=== PATIENT | female | born 1970 | race Caucasian/White ===

== ENCOUNTER → 2018-01-29 07:51 | Outpatient (CLI) | payer SELFPAY ==
--- NOTE | 2018-01-29 07:55 | ECHOD_ITS ---
Reason For Study: Arrhythmia Procedure This was a 2D Doppler, Color Flow transthoracic echocardiogram. The exam was of adequate technical quality. Exam performed in department. Left Ventricle Normal LV size. Left ventricular systolic function is normal. The estimated ejection fraction is 55 %. Diastolic function: considered indeterminate. No regional wall motion abnormalities noted. Right Ventricle Normal RV size. ICD or pacer leads identified within the right ventricle. Normal systolic function. Atria The left atrium is mildly enlarged. Normal right atrium. ICD or pacer leads identified within the right atrium. Color flow study cannot excluded a small ASD. Agitated saline contrast study negative for a right to left interatrial shunt. Mitral Valve There is no mitral annular calcification. Mild mitral valve prolapse, posterior leaflet. Trivial mitral valve insufficiency. Tricuspid Valve Normal tricuspid valve. Mild tricuspid valve insufficiency. Right ventricular systolic pressure estimated to be 33 mmHg. Aortic Valve Trisinus/trileaflet aortic valve. Normal aortic valve. Pulmonic Valve The pulmonic valve is not well visualized. Trivial pulmonic valve insufficiency. Great Vessels Normal sized aortic root. Pericardium/Pleural No pericardial effusion. Medication 22 gauge I.V. with prn adaptor inserted into right arm. Performed a rapid injection of agitated mix of 9 cc saline and 1cc air to assess for atrial septal defect. MMode/2D Measurements & Calculations LVIDd: 5.0 cm IVSd: 0.68 cm Ao root diam: 3.2 cm LVIDs: 3.1 cm LVPWd: 0.85 cm LA dimension: 3.6 cm FS: 38.2 % LAV(MOD-bp): 47.8 ml LVAd ap4: 29.3 cm2 SV(MOD-sp4): 51.4 ml LAV(MOD-bp) Indexed: 26.9 ml/m2 EDV(MOD-sp4): 92.2 ml LAV(MOD-sp2): 46.2 ml EDV(sp4-el): 95.5 ml LAV(MOD-sp4): 49.2 ml LVAs ap4: 17.4 cm2 ESV(MOD-sp4): 40.8 ml ESV(sp4-el): 38.9 ml EF(MOD-sp4): 55.8 % EF(sp4-el): 59.3 % SV(sp4-el): 56.6 ml LA A4 area: 18.8 cm2 RA A4 area: 14.6 cm2 Time Measurements MV dec time: 0.37 sec Doppler Measurements & Calculations MV E max nikki: 88.7 cm/sec Ao V2 max: 118.6 cm/sec LV V1 max: 85.3 cm/sec MV A max nikki: 34.7 cm/sec Ao max P.6 mmHg LV V1 max P.9 mmHg MV E/A: 2.6 Ao V2 mean: 80.2 cm/sec LV V1 mean P.5 mmHg Ao mean P.0 mmHg LV V1 mean: 56.7 cm/sec Ao V2 VTI: 25.9 cm LV V1 VTI: 18.9 cm PA V2 max: 93.4 cm/sec TR max nikki: 275.5 cm/sec TR max P.4 mmHg Interpretation Summary Left ventricular systolic function is normal. The estimated ejection fraction is 55 %. The left atrium is mildly enlarged. Mild mitral valve prolapse, posterior leaflet Trivial mitral valve insufficiency. Mild tricuspid valve insufficiency. Trivial pulmonic valve insufficiency. Right ventricular systolic pressure estimated to be 33 mmHg. Diastolic function: considered indeterminate. ICD or pacer leads identified within the right atrium ICD or pacer leads identified within the right ventricle. Color flow study cannot excluded a small ASD. Agitated saline contrast study negative for a right to left interatrial shunt. Consider further evaluation of atrial septal anatomy with HANNA if clinically indicated. Ordering Physician: Fernando Avelar Referring Physician: Fernando Avelar Performed By: Todd Mosquera RCS
== END ==
PROVIDERS: Family Provider Family Medicine; PCP Family Medicine; Visit Provider Internal Medicine Cardiovascular Disease
DX: I47.2 Ventricular tachycardia (principal); I48.0 Paroxysmal atrial fibrillation; Z95.810 Presence of automatic (implantable) cardiac defibrillator; I45.81 Long QT syndrome
CPT/HCPCS: 93306; A4216

== ENCOUNTER 2021-09-25 11:51 | Outpatient (CLI) | payer SELFPAY ==
[2021-09-25 12:16] LABS: Bacteria 0 SEEN /hpf (None Seen); Mucous, Urine 0 SEEN /hpf (<or=2+); White Blood Cells 0 SEEN /hpf (0-5)
[2021-09-25 12:34] LABS: Color, Urine Yellow (Yellow); Glucose, Dipstick Normal (Normal); Ketone-Dipstick Negative (Negative); Leukocyte Esterase-Dipstick Negative /ul (Negative); Nitrite-Dipstick Negative (Negative); Occult Blood-Urine 150 /ul (Negative); Protein-Dipstick Negative (Negative); Specific Gravity, Urine 1.015 (1.002-1.030); Urine Bilirubin Dipstick Negative (Negative); Urine Clarity Clear (Clear); Urine Urobilinogen Normal (Normal)
[2021-09-25 12:35] LABS: Hematocrit 39.6 % (37-47); Mean Corp Hgb Conc 32.8 g/dL (32-36); Mean Corpuscular Volume 94.5 fL (81-99); Mean Platelet Vol. 9.7 fl (6.2-12.0); Platelet Count 251 K/mm3 (150-450); RBC Distribution Width CV 12.4 % (11.6-14.6); Red Blood Count 4.19 M/mm3 (4.2-5.4); White Blood Count 6.4 K/mm3 (4.4-11.0)
[2021-09-25 12:44] LABS: International Normalized Ratio 1.1; Prothrombin Time (Protime)PT. 13.2 SECONDS (11.7-14.9); Red Blood Cells-Urine 10-25 SEEN /hpf (0-5); Squamous Epithelial Cells - UA 0-5 SEEN /hpf (5-10)
[2021-09-25 13:16] LABS: Anion Gap 4 (5-15); BUN 17 mg/dL (7-18); BUN/Creat Ratio 21.6 RATIO (10-20); Calcium,Total 9.4 mg/dL (8.5-10.1); Chloride 109 mmol/L (98-107); Creatinine, Serum 0.79 mg/dL (0.55-1.02); EST Glomerular Filtration Rate 82 mL/min (>60); Est Glom Filt Rate - Afr Amer 100 mL/min (>60); Glucose 90 mg/dL (74-106); Potassium 4.4 mmol/L (3.5-5.1); Sodium Level 137 mmol/L (136-145)
== END 2021-09-25 23:59 | disposition home or self-care (01) ==
PROVIDERS: Internal Medicine Cardiovascular Disease; PCP Family Medicine; Referring Provider Physician Assistant Medical; Visit Provider Physician Assistant Medical
DX: I42.8 Other cardiomyopathies (principal); I48.0 Paroxysmal atrial fibrillation; I49.5 Sick sinus syndrome; I47.2 Ventricular tachycardia; Z95.810 Presence of automatic (implantable) cardiac defibrillator; I45.81 Long QT syndrome; Z86.74 Personal history of sudden cardiac arrest; Z01.818 Encounter for other preprocedural examination
CPT/HCPCS: 36415; 80048; 81001; 85027; 85610; 87635; C9803; U0003; U0005

== ENCOUNTER 2021-09-28 08:52 | Day surgery (SDC) | payer SELFPAY ==
[2021-09-27 08:16] VITALS: BMI 32.1
--- NOTE | 2021-09-27 16:03 | PCM.HP.BLA ---
History and Physical Date of Admission: 09/28/21 ION WAGNER, is a 50 year old white female who presents to the office today for an updated HPI for a generator change for her ICD. Her ICD has reached SYDNEE. She has a history of long QT syndrome diagnosed in 2004 after 2 syncopal events, cardiac arrest, status post noninvasive/invasive evaluation, and subsequent ICD placement. She also had an atrial fibrillation ablation and successful RVOT?PVC ablation in April 2012 at [facility]. From a cardiac standpoint, patient is doing well. She does not have any chest discomfort/heaviness/tightness. Her exercise tolerance is stable for her age. She does not have any worsening symptoms of shortness of breath. She does not have any orthopnea. She denies PND. She does not have any symptoms of congestive heart failure. She does not have any palpitations that she is aware of. She does not have any lightheadedness or dizziness. She does not have any near-syncope or syncope. She does not have any lower extremity edema. She does not have any symptoms of claudication. Allergies No Known Allergies Allergy (Verified 07/28/21 14:05) Medications lactobacillus combination no.8 3 billion cell capsule 3,000 mmu cells PO QDAY 01/22/18 [History Confirmed 07/28/21] aspirin 81 mg tablet,delayed release 81 mg PO QDAY 01/23/18 [History Confirmed 07/28/21] lorazepam 0.5 mg tablet 0.5 mg PO DAILY PRN 08/05/19 [History Confirmed 07/28/21] cholecalciferol (vitamin D3) 250 mcg (10,000 unit) capsule 250 mcg PO DAILY 10/24/20 [History Confirmed 07/28/21] metoprolol succinate 50 mg tablet,extended release 24 hr 50 mg PO .COMPLEX #135 tab 07/28/21 [Rx Confirmed 07/28/21] paroxetine HCl 10 mg tablet 10 mg PO DAILY 07/28/21 [History Confirmed 07/28/21] [facility] Medical History Atrial arrhythmia Cardiac arrest Fatigue Insomnia Long QT syndrome Non-ischemic cardiomyopathy Paroxysmal atrial fibrillation Presence of automatic (implantable) cardiac defibrillator Sick sinus syndrome Ventricular tachycardia Surgical History History of cardiac radiofrequency ablation (~2012) History of dilatation and curettage History of total hysterectomy S/P implantation of automatic cardioverter/defibrillator (AICD) Family History Father CAD (coronary artery disease) Myocardial infarction, Onset Age: 53 Mother Heart disease Social History Smoking Status: Never smoker alcohol intake: never ROS Const Const: Negative for fatigue, weakness, headache(s), frequent falls, excessive sweating, weight gain or weight loss Eyes Eyes: Negative for blind spots, loss of peripheral vision, transient loss of vision, blurry vision, change in vision or double vision ENT ENT: Negative for headache(s), dizziness, tinnitus, Nosebleed/epistaxis or balance problems Cardio Chest Pain: No Palpitations: No Edema: None Muscle aches with walking: None Resp Respiratory: Negative for SOB with activity, SOB at rest, SOB orthopnea\SOB lying down or Cough GI GI: Negative nausea, vomiting, heartburn, bloating, vomiting blood/hematemesis, bright, red blood in stools or black,tarry stools : Negative for hematuria Musc Musc: Negative for muscle aches/ myalgia, muscle weakness, joint pain or balance problems Skin Skin: Negative rash or wounds Neuro Neuro: Negative for dizziness, lightheadedness, near syncope, syncope, orthostatic symptoms, frequent falls, headache(s), weakness, confusion, memory loss, restless legs, blurry vision or double vision Chay Hematologic/Lymphatic: Negative for easy bleeding or easy bruising Endo Endo: Negative for fatigue, cold intolerance, heat intolerance or excessive sweating Psych Psych: Negative for anxiety or depression Allergy Allergy/Immunology: Negative for rash Cardiology Exam Const Appearance: cooperative, healthy appearing, comfortable, no acute distress and well developed Orientation: alert, awake and oriented x3 Head Head: normal to inspection Ears: hearing grossly normal bilaterally Nose: external nose normal Face and Sinus: face symmetric Mouth: oral mucosae normal, lip normal and moist mucous membranes Eyes General: appearance normal, both eyes and all related structures Eyelids: eyelids normal Conjunctivae: conjunctivae normal Pupils: PERRL EOM: EOM intact bilaterally Neck Neck: normal visual inspection and trachea midline; Negative no JVD Carotids: Negative bruit Chest Chest inspection: normal inspection of the chest and Pacemaker/ICD Yes left pectoral incision Auscultation: Bilateral: Clear to Auscultation Cardio Palpation: normal PMI Rate: regular rate Rhythm: regular rhythm Heart sounds: S1 normal and S2 normal; Negative rub, gallop or murmur GI GI: soft, no hepatosplenomegaly and bowel sounds present Neuro General: patient alert, patient awake, patient oriented x3 and CN's II-XI intact bilaterally Extremities Pulses: Normal: Right Posterior Tibial Pulse, Left Posterior Tibial Pulse, Right Radial Pulse and Left Radial Pulse Lower Extremity Edema: None: Bilateral Psych Psychological: normal affect Supplemental Info Supplemental Information Echocardiogram from January 2018 showed ejection fraction 55%, mildly enlarged left atrium, mild mitral valve prolapse, posterior leaflet, trivial mitral valve insufficiency, mild tricuspid valve insufficiency, trivial pulmonic valve insufficiency, RVSP 33 mmHg, systolic function considered indeterminate, ICD or pacer leads identified within right atrium and right ventricle, color flow study cannot exclude a small ASD, agitated saline contrast negative for right to left interatrial shunt, consider further evaluation of atrial septal anatomy with HANNA if clinically indicated. Assessment & Plan Assessment/Plan (1) Presence of automatic (implantable) cardiac defibrillator: (2) Non-ischemic cardiomyopathy: (3) Cardiac arrest: (4) Long QT syndrome: (5) Ventricular tachycardia: PLAN: Patient's device has reached SYDNEE. She is scheduled to undergo a generator change. She will follow-up with us in our office accordingly.
--- NOTE | 2021-09-28 11:01 | PCM.OPRPT ---
Report of Operation Date of Procedure: 09/28/21 Pre-Operative Diagnosis: REPLACEMENT OF ICD FOR NORMAL BATTERY DEPLETION Post-Operative Diagnosis: SAME ABOVE Estimated Blood Loss (mL): 10 Description of Procedure: Diagnosis: lONG qt SYNDROME WITH CARDIAC ARREST Device generator replacement for normal battery depletion Preoperative diagnosis is device at end of life for normal battery depletion. Postoperative diagnosis same as above. After informed consent and IV antibiotics the patient was brought to the [facility] laboratory and the skin over the device was prepped and draped in the usual sterile manner. Intermittent boluses of Versed, and fentanyl were used for sedation and analgesia as well as 1% subcutaneous lidocaine. An incision was made over the pre-existing device. Using blunt and Bovie dissection the pocket was opened and the device was removed. Careful attention was paid not to injure the pre-existing leads. The leads were removed from the device header and they were interrogated. There is normal lead function. Hemostasis was obtained. The pocket was flushed with antibiotic solution. The sponge and needle count were correct. The new device was brought to the field. The leads were placed in the appropriate position in the header and secured by the set screw. The leads and the device were then placed in the pocket. The pocket was closed with a deep layer of running 2-0 Vicryl, a superficial layer of running 4-0 Vicryl, skin with Steri-Strips which were covered with a rolled 4 x 4 and Tegaderm. Patient left the room with the device programmed to proper parameters and there were no complications. The device is a DUAL chamber [employer] ICD generator. All lead parameters were tested and found to be functionally normal. Lead and device serial and model numbers are available in the chart documents provided by the device company merchandiser retail representative procedure summary.
== END 2021-09-28 23:59 | disposition home or self-care (01) ==
PROVIDERS: PCP Family Medicine; Visit Provider Internal Medicine Cardiovascular Disease
DX: Z45.010 Encounter for checking and testing of cardiac pacemaker pulse generator [battery] (principal); I47.2 Ventricular tachycardia; I48.0 Paroxysmal atrial fibrillation; Z45.02 Encounter for adjustment and management of automatic implantable cardiac defibrillator; I45.81 Long QT syndrome; Z95.810 Presence of automatic (implantable) cardiac defibrillator; Z86.74 Personal history of sudden cardiac arrest; Z79.899 Other long term (current) drug therapy; Z79.82 Long term (current) use of aspirin; Z82.49 Family history of ischemic heart disease and other diseases of the circulatory system
CPT/HCPCS: 33263; 93641; 99152; 99153; J7040

== ENCOUNTER → 2022-01-31 | Outpatient (CLI) | payer SELFPAY ==
[2022-01-31 17:22] LABS: Absolute Lymphocyte Count 2.17 X10^3/uL (0.83-4.51); Basophil# 0.04 X10^3/uL; Basophil% 0.7 % (0-1); Eosinophil# 0.08 X10^3/uL; Eosinophils% 1.4 % (0-5); Hematocrit 40.3 % (37-47); Lymphocyte # 2.17 X10^3/ul (0.83-4.51); Lymphocyte % 38.4 % (19-41); Mean Corp Hgb Conc 32.3 g/dL (32-36); Mean Corpuscular Volume 96.2 fL (81-99); Mean Platelet Vol. 10.2 fl (6.2-12.0); Monocyte# 0.38 X10^3/uL; Monocyte% 6.7 % (0-10); NRBC Flagged by Analyzer 0 % (0-5); Neutrophil # 2.97 X10^3/uL (2.7-7.7); Neutrophil % 52.6 % (47-70); Platelet Count 246 K/mm3 (150-450); RBC Distribution Width CV 12.7 % (11.6-14.6); RBC Distribution Width SD 44.8 fl (35.1-43.9); Red Blood Count 4.19 M/mm3 (4.2-5.4); White Blood Count 5.7 K/mm3 (4.4-11.0)
[2022-01-31 18:28] LABS: Anion Gap 7 (5-15); BUN 19 mg/dL (7-18); BUN/Creat Ratio 22.8 RATIO (10-20); Chloride 104 mmol/L (98-107); Creatinine, Serum 0.83 mg/dL (0.55-1.02); EST Glomerular Filtration Rate 77 mL/min (>60); Est Glom Filt Rate - Afr Amer 93 mL/min (>60); Glucose 87 mg/dL (74-106); Magnesium 2.2 mg/dL (1.6-2.6); Potassium 3.5 mmol/L (3.5-5.1); Sodium Level 139 mmol/L (136-145); Thyroid Stim Hormone (TSH) 1.57 uIU/mL (0.358-3.74)
== END | disposition home or self-care (01) ==
PROVIDERS: PCP Family Medicine; Visit Provider Physician Assistant Medical
DX: I48.0 Paroxysmal atrial fibrillation (principal); I47.2 Ventricular tachycardia; Z95.810 Presence of automatic (implantable) cardiac defibrillator
CPT/HCPCS: 36415; 80048; 83735; 84443; 85025

== ENCOUNTER 2023-10-30 19:20 | Emergency (ER) | payer OTHER, SELFPAY ==
[2023-10-30 19:21] VITALS: BP 129/83; PULSE 70; RESP 18; TEMP 36.1; O2SAT 95; BMI 32.8
[2023-10-30 20:18] LABS: Bacteria 0 SEEN /hpf (None Seen); Color, Urine Yellow (Yellow); Glucose, Dipstick Normal (Normal); Ketone-Dipstick Negative (Negative); Leukocyte Esterase-Dipstick Negative /ul (Negative); Mucous, Urine 0 SEEN /hpf (<or=2+); Nitrite-Dipstick Negative (Negative); Occult Blood-Urine 250 /ul (Negative); Protein-Dipstick 15 mg/dl (Negative); Specific Gravity, Urine 1.025 (1.002-1.030); Urine Bilirubin Dipstick Negative (Negative); Urine Clarity Clear (Clear); Urine Urobilinogen Normal (Normal)
[2023-10-30 20:23] LABS: Absolute Lymphocyte Count 2.86 X10^3/uL (0.83-4.51); Absolute Neutrophil Count 2.8 X10^3/uL (2.0-7.7); Basophil# 0.02 X10^3/uL; Basophil% 0.3 % (0-1); Eosinophil# 0.09 X10^3/uL; Eosinophils% 1.5 % (0-5); Hematocrit 42.6 % (37-47); Hemoglobin 14.1 g/dL (12.0-15.0); Lymphocyte # 2.86 X10^3/ul (0.83-4.51); Lymphocyte % 46.4 % (19-41); Mean Corp Hgb Conc 33.1 g/dL (32-36); Mean Corpuscular Hgb 31.3 pg (27.0-32.0); Mean Corpuscular Volume 94.7 fL (81-99); Mean Platelet Vol. 9.7 fl (6.2-12.0); Monocyte# 0.39 X10^3/uL; Monocyte% 6.3 % (0-10); NRBC Flagged by Analyzer 0 % (0-5); Neutrophil # 2.79 X10^3/uL (2.7-7.7); Neutrophil % 45.3 % (47-70); Platelet Count 237 K/mm3 (150-450); RBC Distribution Width CV 12.7 % (11.6-14.6); RBC Distribution Width SD 43.8 fl (35.1-43.9); White Blood Count 6.2 K/mm3 (4.4-11.0)
--- NOTE | 2023-10-30 20:28 | EDS_ITS ---
HPI HPI - GI History of Present Illness Chief Complaint: Abd Pain Narrative Narrative: 53-year-old female presenting with abdominal pain. She states it started on Saturday. Patient states it was painful after she was shoveling that day. She states she has a history of having abdominal pain after doing workouts in such. Patient will localize the pain with 1 finger to the left lower quadrant. Patient denies fever but feels a little ill. She states that she also has pain that radiates all the way up from her left lower quadrant up into her throat. She feels like her throat is closing at times. This comes at the same time she gets waves of pain in her lower abdomen. She has not had any urinary or vaginal complaints. No constipation or diarrhea. No abdominal trauma. Patient does relate that she has a history of diverticulitis but does state it feels the same. She was post to have this followed up with a colonoscopy which is next week with Dr. Mason. Patient's family history in her mother is significant for ovarian cancer. She states she followed up with her [employer] SUPPORT SPECIALIST a year ago and has had ultrasound. [facility] Medical History Atrial arrhythmia Cardiac arrest Fatigue Insomnia Long QT syndrome Non-ischemic cardiomyopathy Paroxysmal atrial fibrillation Presence of automatic (implantable) cardiac defibrillator Sick sinus syndrome Ventricular tachycardia Home Medications lactobacillus combination no.8 3 billion cell capsule (Adult Probiotic) 3,000 mmu cells PO QDAY 01/22/18 [History Last Taken Unknown] aspirin 81 mg tablet,delayed release 81 mg PO QDAY 01/23/18 [History Last Taken Unknown] calcium citrate 315 mg-vitamin D3 5 mcg (200 unit) tablet (Calcium Citrate + D) 1 tab PO DAILY 09/10/22 [History Last Taken Unknown] cholecalciferol (vitamin D3) 125 mcg (5,000 unit) tablet 125 mcg PO DAILY 09/10/22 [History Last Taken Unknown] vitamin E succinate 67 mg (100 unit) tablet 67 mg PO DAILY 09/10/22 [History Last Taken Unknown] metoprolol succinate 50 mg tablet,extended release 24 hr (Toprol XL) 25 mg (1/2 x 50 mg) PO DAILY #135 tabs 03/11/23 [Rx Last Taken Unknown] Allergy/AdvReac Type Severity Reaction Status Date / Time No Known Allergies Allergy Verified 10/30/23 19:24 Family History Father CAD (coronary artery disease) Myocardial infarction, Onset Age: 53 Mother Heart disease Surgical History History of cardiac radiofrequency ablation (~2012) History of dilatation and curettage History of total hysterectomy S/P implantation of automatic cardioverter/defibrillator (AICD) Social History Smoking Status: Never smoker alcohol intake: never ROS ROS ED Constitutional Constitutional ED: Denies chills, fever(s) or sweats Eyes Eyes: Denies blurry vision or change in vision ENT ENT ED: Denies ear pain or sore throat Cardiovascular Cardiovascular: Denies chest pain, palpitations or racing heartbeat Respiratory/Chest Respiratory/Chest: Denies cough, dyspnea or sputum Gastrointestinal Gastrointestinal: Reports abdominal pain and nausea; Denies constipation, diarrhea or vomiting Genitourinary Genitourinary ED: Denies dysuria, hematuria or urinary frequency Musculoskeletal Musculoskeletal: Denies arthralgias, myalgias or neck pain Integumentary Denies abscess, Abrasions or rash Neurologic Neurologic: Denies headache(s), paresthesias or weakness Psychiatric Psychiatric: Denies anxiety, depression, suicidal ideation or suicidal thoughts Endocrine Endocrinology: Denies polydipsia or polyuria EXAM Physical Exam Const Vital Signs: 10/30/23 19:21 10/30/23 21:21 Temperature 96.9 F L Temperature Source Temporal Pulse Rate 70 87 Respiratory Rate 18 16 Blood Pressure 129/83 H 118/87 H Blood Pressure Mean 98 97 Pulse Ox 95 97 Oxygen Delivery Method Room Air Room Air Positive well nourished HEENT Reports moist mucous membranes Eyes PERRL and EOMs intact bilaterally Resp normal respiratory effort Cardio regular rate and regular rhythm GI Palpation: tender LLQ Back/Spine no CVA tenderness Neuro CN's II-XII intact bilaterally Sensorium / Orientation: alert Psych mental status grossly normal MDM MDM MDM Narrative Medical decision making narrative: Patient presenting with abdominal pain patient presenting with right flank pain. Differential includes colitis, diverticulitis, gastritis, pancreatitis, constipation, UTI, pyelonephritis, renal calculi, ureteral calculi, bowel obstruction, malignancy, dehydration, electrolyte abnormalities, , ectopic , ovarian cyst, ovarian torsion. Patient medicated with morphine, Zofran, IV fluids. CBC was obtained to assess for blood cell count, hemoglobin, platelets. CMP to assess liver function, renal function electrolytes, glucose. Lipase to assess for pancreatitis. Urinalysis to assess for UTI. Will obtain CT of the abdomen pelvis with IV contrast. CBC and CMP are normal. Lipase normal. hCG negative. Urinalysis negative for infection. CT of the abdomen pelvis with IV contrast is negative for acute findings. I suspect that since the pain started while she was doing yard work that she might have musculoskeletal pain. Counseled to use NSAIDs, ice, rest. Discharged home in stable condition. Impression: 1. Abdominal pain Lab Data Attestation: I reviewed the patient's lab results. Labs: Laboratory Results - last 24 hr 10/30/23 10/30/23 20:10 20:15 WBC 6.2 RBC 4.50 Hgb 14.1 Hct 42.6 MCV 94.7 MCH 31.3 MCHC 33.1 RDW Std Deviation 43.8 RDW Coeff of Shelia 12.7 Plt Count 237 MPV 9.7 Immature Gran % (Auto) 0.200 Neut % (Auto) 45.3 L Lymph % (Auto) 46.4 H [place] % (Auto) 6.3 Eos % (Auto) 1.5 Baso % (Auto) 0.3 Absolute Neuts (auto) 2.8 Absolute Lymphs (auto) 2.86 Nucleated RBC % 0 Sodium 140 Potassium 3.8 Chloride 106 Carbon Dioxide 31.0 Anion Gap 3 L BUN 15 Creatinine 0.89 Estim Creat Clear Calc 78.79 Est GFR (MDRD) Af Amer 86 Est GFR (MDRD) Non-Af 71 BUN/Creatinine Ratio 16.8 Glucose 91 Calcium 9.2 Total Bilirubin 0.30 AST 19 ALT 25 Alkaline Phosphatase 63 Total Protein 8.1 Albumin 4.1 Globulin 4.0 Albumin/Globulin Ratio 1.0 Lipase 26 Serum , Qual NEGATIVE Urine Color Yellow Urine Clarity Clear Urine pH 6.0 Ur Specific [place] 1.025 Urine Protein 15 H Urine Glucose (UA) Normal Urine Ketones Negative Urine Occult Blood 250 H Urine Nitrite Negative Urine Bilirubin Negative Urine Urobilinogen Normal Ur Leukocyte Esterase Negative Urine RBC 5-10 SEEN Urine WBC 0-5 SEEN Ur Squamous Epith Cells 0-5 SEEN Calcium Oxalate Crystal 2+ Urine Bacteria 0 SEEN Urine Mucus 0 SEEN Radiography Diagnostic Testing: Clinical Impression(s) from Imaging Studies Abdomen/Pelvis CT 10/30/23 21:00 IMPRESSION: Normal enhanced CT of the abdomen and pelvis. Electronically Signed: Anthony Ferreira MD at 21:44 EDT , Discharge Plan Triage Chief Complaint: Abd Pain ED Provider: Tom Huffman Dx/Rx/DC Orders Instructions: ED Abdominal Pain Unkn Cause Fem Prescriptions: No Action aspirin 81 mg tablet,delayed release (DR/EC) 81 mg PO QDAY lactobacillus combination no.8 [Adult Probiotic] 3 billion cell capsule 3,000 mmu cells PO QDAY calcium citrate-vitamin D3 [Calcium Citrate + D] 315 mg-5 mcg (200 unit) tablet 1 tab PO DAILY cholecalciferol (vitamin D3) 125 mcg (5,000 unit) tablet 125 mcg PO DAILY vitamin E succinate 67 mg (100 unit) tablet 67 mg PO DAILY metoprolol succinate [Toprol XL] 50 mg tablet extended release 24 hr 25 mg PO DAILY Qty: 135 3RF Primary Care Provider: Tiago Brito Referrals: Tiago Brito MD [Primary Care Provider] - Disposition Disposition: Home, Self Care
[2023-10-30 20:35] LABS: Red Blood Cells-Urine 5-10 SEEN /hpf (0-5)
[2023-10-30 20:37] LABS: Calcium Oxalate Crystals Ur 2+ /hpf (<or=2+); Squamous Epithelial Cells - UA 0-5 SEEN /hpf (5-10); White Blood Cells 0-5 SEEN /hpf (0-5)
[2023-10-30 20:38] LABS: Internal QC Validated? YES +Cl - CLEAR BKGD; Pregnancy, Serum, hCG Quali. NEGATIVE Negative
[2023-10-30 20:39] LABS: AST(SGOT) 19 U/L (15-37); Alanine Aminotransfer ALT/SGPT 25 U/L (13-56); Albumin, Serum 4.1 g/dL (3.2-5.0); Alkaline Phosphatase 63 U/L (45-117); Anion Gap 3 (5-15); BUN 15 mg/dL (7-18); BUN/Creat Ratio 16.8 RATIO (10-20); Calcium,Total 9.2 mg/dL (8.5-10.1); Chloride 106 mmol/L (98-107); Creatinine, Serum 0.89 mg/dL (0.55-1.02); EST Glomerular Filtration Rate 71 mL/min (>60); Est Glom Filt Rate - Afr Amer 86 mL/min (>60); Estimated Creatinine Clearance 78.79 ml/min; Glucose 91 mg/dL (74-106); Potassium 3.8 mmol/L (3.5-5.1); Protein, Total 8.1 g/dL (6.4-8.2); Sodium Level 140 mmol/L (136-145)
[2023-10-30] MEDS: Ondansetron 4 MG/2 ML Vial IV (20:42)
[2023-10-30] MEDS: Morphine 4 MG/ML Syringe IV (20:42)
[2023-10-30] MEDS: 0.9% Normal Saline (1000mL) 1,000 ML 999 ML IV (20:42)
[2023-10-30 20:48] LABS: Lipase 26 U/L (13-75)
--- NOTE | 2023-10-30 21:00 | CT_ITS ---
STUDY: CT ABDOMEN AND PELVIS WITH CONTRAST REASON FOR EXAM: Female, 53 years old. llq abdominal pain RADIATION DOSAGE (If Supplied By Facility): CTDIvol = ( 13.81 ) mGy, DLP = ( 955.27 ) mGycm TECHNIQUE: Transaxial images were obtained from the dome of the diaphragm to the symphysis pubis without oral contrast. IV 100mL Isovue-[id number] was administered. Sagittal and coronal images were reconstructed. Individualized dose optimization techniques were used for this CT. COMPARISON: None. FINDINGS: The visualized lung bases are unremarkable. The visualized portions of the heart are within normal limits. Normal liver. Normal gallbladder and extrahepatic biliary system. Normal spleen. Normal pancreas. Normal bilateral adrenal glands. Normal right kidney. Normal left kidney. Normal visualized stomach. Normal small intestine. Normal colon. The appendix is visualized and appears normal. Normal abdominal aorta. Normal inferior vena cava. Normal retroperitoneum. Normal urinary bladder. There is a small umbilical hernia containing fat. Normal osseous structures. CT/Abdomen/Pelvis W IV Cont ONLY IMPRESSION: Normal enhanced CT of the abdomen and pelvis. Electronically Signed: Anthony Ferreira MD at 21:44 EDT ,
[2023-10-30 21:21] VITALS: BP 118/87; PULSE 87; RESP 16; O2SAT 97
[2023-10-30 22:02] VITALS: BP 114/86; PULSE 85; RESP 19; TEMP 36.8; O2SAT 95
== END 2023-10-30 22:06 | disposition home or self-care (01) ==
PROVIDERS: Emergency Provider Student in an Organized Health Care Education/Training Program; PCP Family Medicine; Visit Provider Student in an Organized Health Care Education/Training Program
DX: R10.32 Left lower quadrant pain (principal); I48.0 Paroxysmal atrial fibrillation; I42.9 Cardiomyopathy, unspecified; Z95.810 Presence of automatic (implantable) cardiac defibrillator; Z90.710 Acquired absence of both cervix and uterus; Z79.899 Other long term (current) drug therapy
CPT/HCPCS: 74177; 80053; 81001; 83690; 84703; 85025; 99283; J7030; Q9967; A4216; J2405

== ENCOUNTER 2023-11-06 08:40 | Day surgery (SDC) | payer SELFPAY ==
--- NOTE | 2023-11-06 08:48 | H&P.OPEN ---
HPI - General General Date of Service: 11/06/23 HPI Narrative ION WAGNER, is a 53 F who presents for screening colonoscopy due to history of diverticulitis and history of polyps. Patient did go to the ER earlier this month for abdominal pain had a CT abdomen pelvis which did not show any acute process. Did review personally. Patient denies any abdominal pain currently. Denies any other chronic abdominal pain nausea/vomiting/reflux. office visit 07/19/23 [facility] HPI: 52-year-old female presents for follow-up for umbilical hernia. Patient denies any pain in the hernia states that she did see her PCP and was given antibiotics for diverticulitis in early June and that pain has completely resolved. Patient has bowel moods about every other day denies any blood. Patient did have a colonoscopy about 5 years ago at [facility] and previous to that was at [facility] with Dr. Garner. Patient has a history of colon polyps. Patient denies any family history of colon cancer. [facility] Medical History Anxiety Atrial arrhythmia Cardiac arrest Cardiology follow-up encounter Diverticulosis Easy bruising Fatigue History of atrial fibrillation History of echocardiogram History of heart attack History of IBS History of stress test Insomnia Long QT syndrome Non-ischemic cardiomyopathy Non-smoker Paroxysmal atrial fibrillation Presence of automatic (implantable) cardiac defibrillator Sick sinus syndrome Ventricular tachycardia Home Medications lactobacillus combination no.8 3 billion cell capsule (Adult Probiotic) 3,000 mmu cells PO QDAY 01/22/18 [History Last Taken Unknown] aspirin 81 mg tablet,delayed release 81 mg PO QDAY 01/23/18 [History Last Taken 10/31/23] calcium citrate 315 mg-vitamin D3 5 mcg (200 unit) tablet (Calcium Citrate + D) 1 tab PO DAILY 09/10/22 [History Last Taken Unknown] cholecalciferol (vitamin D3) 125 mcg (5,000 unit) tablet 125 mcg PO DAILY 09/10/22 [History Last Taken Unknown] vitamin E succinate 67 mg (100 unit) tablet 67 mg PO DAILY 09/10/22 [History Last Taken Unknown] metoprolol succinate 50 mg tablet,extended release 24 hr (Toprol XL) 25 mg (1/2 x 50 mg) PO DAILY #135 tabs 03/11/23 [Rx Last Taken 11/06/23 07:00] paroxetine HCl 20 mg tablet 10 mg PO DAILY 11/01/23 [History Last Taken 11/06/23 07:00] slippery elm bark 400 mg capsule 400 mg PO DAILY 11/01/23 [History Last Taken Unknown] vitamin B comp and C no.3 15 mg-10 mg-50 mg-5 mg-300 mg capsule 1 cap PO DAILY 11/01/23 [History Last Taken Unknown] zinc 10 mg tablet 30 mg PO DAILY 11/01/23 [History Last Taken Unknown] Allergy/AdvReac Type Severity Reaction Status Date / Time No Known Allergies Allergy Verified 11/06/23 09:01 Family History Father CAD (coronary artery disease) Myocardial infarction, Onset Age: 53 Mother Heart disease Surgical History (Updated 11/01/23 @ 14:22 by Justa Whitman) History of cardiac radiofrequency ablation (~2012) History of colonoscopy History of dilatation and curettage History of total hysterectomy S/P implantation of automatic cardioverter/defibrillator (AICD) Social History Smoking Status: Never smoker alcohol intake: never Past Medical/Surgical History Planned Operation Planned Operative Procedure/s: CSCOPE Previous Hospitalizations/Surgeries HX Hospitalizations: No Any Problems With Anesthesia: No You/Your Family Experience Fever (Hyperthermia) With Anes: No Cholinesterase deficiency: No Cardiovascular Hx of Irregular Heartbeat and/or Afib: Yes Hx Heart Attack: Yes Hx Congestive Heart Failure: No Hx Hypertension: No Hx Pacemaker: Yes Respiratory Hx Chronic Obstructive Pulmonary Disease (COPD): No Hx Asthma: No Hx Emphysema: No Hx Sleep Apnea: No Hx Respiratory Tract Infection/Cold (presently): No Do You Snore Loudly (louder than talking or can be heard): No Do You Often Feel Tired/ Fatigued/ Sleepy Dring Daytime?: No Has Anyone Observed You Stop Breathing During Sleep?: No Result (for STOP score): Negative Smoking Status: Never smoker Gastrointestinal Hx Ulcer: No Neurological Hx Seizures: No Hx Multiple Sclerosis: No Hx Parkinson's Disease: No Hx Head/Neck Injury: No Hx Headaches: No Hx Back Injury/Pain: No Does patient have nerve stimulator: No Reproduction : No Psycho/Social Hx Anxiety: No Hx Depression: No Allergies No Known Allergies Allergy (Verified 11/06/23 09:01) see list of drugs that may cause long QT Discharge Is Pt Admitted From a [facility], or a Alf: No After D/C, Where Do you Plan to Go: Return Home Physical Exam Const alert, oriented x3 and no apparent distress HEENT normocephalic and head/scalp atraumatic Resp normal respiratory effort Cardio regular rate GI soft to palpation and non-tender; Negative for non-distended Palpation: Negative for guarding Extremity no clubbing, cyanosis or edema Skin no rashes or lesions noted Neuro CN's II-XII intact bilaterally Psych mental status grossly normal Assessment & Plan Assessment/Plan (1) Hx of colonic polyps: (2) History of diverticulitis: Surgery Risks - Colonoscopy I discussed with the patient the risks of the procedure: Yes Risks Include but are not Limited To: Risks include but are not limited to: Bleeding, perforation requiring further surgery, inability to complete colonoscopy requiring barium enema.
[2023-11-06 09:02] VITALS: BP 110/77; PULSE 73; RESP 16; TEMP 36.4; O2SAT 100; BMI 30.9
[2023-11-06] MEDS: Lactated Ringers 1,000 ML 15 ML IV (09:21)
[2023-11-06 09:48] VITALS: BP 110/77; BP 83/54; PULSE 70; RESP 16; TEMP 36.1; O2SAT 99
[2023-11-06 09:50] VITALS: BP 110/77; BP 83/47; PULSE 70; RESP 16; O2SAT 97
--- NOTE | 2023-11-06 09:50 | OP.COLON_ITS ---
Patient Name: Jacqueline Bhatti Procedure Date: 11/06/2023 9:16 AM Date of : 1970 Age: 53 Procedure: Colonoscopy Indications: High risk colon cancer surveillance: Personal history of colonic polyps Providers: Gina Mason MD Referring MD: Tiago Brito Medicines: Monitored Anesthesia Care Patient Profile: This is a 53 year old female. Last Colonoscopy: 5 years ago. Complications: No immediate complications. Procedure: Pre-Anesthesia Assessment: - Prior to the procedure, a History and Physical was performed, and patient medications and allergies were reviewed. The patient's tolerance of previous anesthesia was also reviewed. The risks and benefits of the procedure and the sedation options and risks were discussed with the patient. All questions were answered, and informed consent was obtained. Prior Anticoagulants: The patient has taken no anticoagulant or antiplatelet agents. ASA Grade Assessment: Per anesthesia. After reviewing the risks and benefits, the patient was deemed in satisfactory condition to undergo the procedure. After I obtained informed consent, the scope was passed under direct vision. Throughout the procedure, the patient's blood pressure, pulse, and oxygen saturations were monitored continuously. The Colonoscope was introduced through the anus and advanced to the cecum, identified by the appendiceal orifice, ileocecal valve and palpation. The colonoscopy was performed without difficulty. The patient tolerated the procedure well. Scope In: 9:30:05 AM Scope Withdrawal Time 0 hours 9 minutes 30 seconds Scope Out: 9:44:38 AM Total Procedure Duration Time 0 hours 14 minutes 33 seconds Findings: Non-bleeding internal hemorrhoids were found. The hemorrhoids were Grade I (internal hemorrhoids that do not prolapse). Multiple small-mouthed diverticula were found in the sigmoid colon. The entire examined colon appeared normal. Impression: - Non-bleeding internal hemorrhoids. - Diverticulosis in the sigmoid colon. - The entire examined colon is normal. - No specimens collected. Recommendation: - Discharge patient to home. - High fiber diet. - Continue present medications. - Repeat colonoscopy in 10 years for screening purposes. Procedure Code(s): --- Professional --- G0105, PT, Colorectal cancer screening; colonoscopy on individual at high risk Diagnosis Code(s): --- Professional --- Z86.010, Personal history of colonic polyps K64.0, First degree hemorrhoids K57.30, Diverticulosis of large intestine without perforation or abscess without bleeding CPT copyright 2021 [employer]. All rights reserved. The codes documented in this report are preliminary and upon hims coder review may be revised to meet current compliance requirements. MD Gina Montes MD 11/06/2023 9:49:51 AM This report has been signed electronically. Number of Addenda: 0 Note Initiated On: 11/06/2023 9:16 AM
--- NOTE | 2023-11-06 09:50 | OP.CCLET_ITS ---
11/06/2023 Tiago Brito Re : Colonoscopy procedure for Jacqueline Magyharpreet Brito This procedure was performed on Monday, November 06, 2023. My impressions and recommendations are as follows: Impressions : - Non-bleeding internal hemorrhoids. - Diverticulosis in the sigmoid colon. - The entire examined colon is normal. - No specimens collected. Recommendations : - Discharge patient to home. - High fiber diet. - Continue present medications. - Repeat colonoscopy in 10 years for screening purposes. My findings are described in the full procedure note, which is enclosed. If I can be of further assistance, please feel free to contact me at Doctor phone number(s): , Work: . Sincerely, MD Gina Montes MD 11/06/2023 9:49:51 AM This report has been signed electronically.
[2023-11-06 09:55] VITALS: BP 110/77; BP 84/55; PULSE 70; RESP 16; O2SAT 97
[2023-11-06 09:58] VITALS: BP 110/77; BP 98/67; PULSE 70; RESP 16; TEMP 36.8; O2SAT 100
[2023-11-06 10:13] VITALS: BP 110/77
== END 2023-11-06 10:30 | disposition home or self-care (01) ==
LOC: EN 08:41 → AC 08:42
PROVIDERS: PCP Family Medicine; Referring Provider Family Medicine; Visit Provider Surgery
PROC: 0DJD8ZZ Inspection of Lower Intestinal Tract, Via Natural or Artificial Opening Endoscopic (ICD-10-PCS; CPT 45378; principal; 2023-11-06 10:10)
DX: Z12.11 Encounter for screening for malignant neoplasm of colon (principal); I48.0 Paroxysmal atrial fibrillation; Z86.010 Personal history of colon polyps; K57.30 Diverticulosis of large intestine without perforation or abscess without bleeding; Z79.82 Long term (current) use of aspirin; I25.2 Old myocardial infarction; Z95.810 Presence of automatic (implantable) cardiac defibrillator; Z87.19 Personal history of other diseases of the digestive system; K64.0 First degree hemorrhoids
CPT/HCPCS: 45378; J7120; J2405

== ENCOUNTER → 2024-06-05 | Outpatient (CLI) | payer SELFPAY ==
--- NOTE | 2024-06-05 15:24 | US_ITS ---
HISTORY: pelvic pain s/p hysterectomy. TECHNIQUE: Transabdominal and transvaginal pelvic ultrasound was performed with wheat scale , spectral Doppler, and color Doppler evaluation. 70 images. COMPARISON: CT 10/30/2023. FINDINGS: UTERUS: Surgically absent. RIGHT OVARY: 1.1 x 1.2 x 2.4 cm small follicles. Vascular flow demonstrated. No adnexal masses. LEFT OVARY: 1.3 x 1.3 x 1.8 cm. Vascular flow demonstrated. No adnexal masses. FREE FLUID: None. URINARY BLADDER: Partially distended at 124 cc. US/Pelvic w/ Transvaginal IMPRESSION: Unremarkable examination of the ovaries. Hysterectomy. Electronically Signed: Geri Bajwa MD at 9:04 EST ,
== END | disposition home or self-care (01) ==
PROVIDERS: PCP Family Medicine; Referring Provider Registered Nurse; Visit Provider Registered Nurse
DX: R10.2 Pelvic and perineal pain (principal); Z90.710 Acquired absence of both cervix and uterus; N94.10 Unspecified dyspareunia
CPT/HCPCS: 76830; 76856

== ENCOUNTER → 2025-05-20 | Outpatient (CLI) | payer SELFPAY ==
[2025-05-20 12:20] LABS: Hematocrit 39.9 % (37-47); Hemoglobin 13.5 g/dL (12.0-15.0); Immature Granulocytes Count 0.010 X10^3/uL (0.0-0.0); Mean Corp Hgb Conc 33.8 g/dL (32-36); Mean Corpuscular Volume 94.1 fL (81-99); Mean Platelet Vol. 10.3 fl (6.2-12.0); NRBC Flagged by Analyzer 0 % (0-5); Platelet Count 250 K/mm3 (150-450); RBC Distribution Width CV 12.0 % (11.6-14.6); RBC Distribution Width SD 41.8 fl (35.1-43.9); Red Blood Count 4.24 M/mm3 (4.2-5.4); White Blood Count 4.4 K/mm3 (4.4-11.0)
[2025-05-20 13:19] LABS: AST(SGOT) 21 U/L (<=31); Alanine Aminotransfer ALT/SGPT 18 U/L (<=34); Albumin, Serum 4.2 g/dL (3.5-5.0); Alkaline Phosphatase 57 U/L (35-104); Anion Gap 10 (5-15); BUN 22 mg/dL (4-19); BUN/Creat Ratio 32.3 RATIO (10-20); Calcium,Total 9.5 mg/dL (7.6-11.0); Carbon Dioxide 24.9 mmol/L (21.0-32.0); Chloride 103 mmol/L (98-108); Globulin 3.2 g/dL (2.2-4.2); Glucose 79 mg/dL (70-99); Magnesium 2.5 mg/dL (1.5-2.2); Potassium 4.6 mmol/L (3.3-5.1)
== END | disposition home or self-care (01) ==
LOC: LAB 10:40
PROVIDERS: PCP Family Medicine; Referring Provider Nurse Practitioner Family; Visit Provider Nurse Practitioner Family
DX: I49.3 Ventricular premature depolarization (principal); I48.0 Paroxysmal atrial fibrillation; I49.5 Sick sinus syndrome; I47.20 Ventricular tachycardia, unspecified; I49.8 Other specified cardiac arrhythmias; I45.81 Long QT syndrome
CPT/HCPCS: 36415; 80053; 83735; 84439; 84443; 85025